=== PATIENT | male | born 1990 | race Caucasian/White ===

== ENCOUNTER 2016-06-06 01:11 | Inpatient (IN) | payer OTHER, MEDICAID ==
[~2016-06-06] VITALS: Ht 182.9 cm; Wt 97.3 kg
[2016-06-06] VITALS (7 sets, daily range): BP systolic 88–127; BP diastolic 53–77; PULSE 86–99; RESP 16–20; O2SAT 93–98
[~2016-06-06 01:11] MED LIST: BAC10 PO; DES50 PO; DSS250 PO; LEVE100014 PO; PRI20 PO; PRO20 PO
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
[2016-06-06] MEDS ORDERED: cefTRIAXone Inj 2,000 MG in Dextrose 5% Minibag Plus 50 ML IV ONE (01:45)
[2016-06-06 01:54] LABS: APPEARANCE,URINE CLOUDY (CLEAR,HAZY); COLOR,URINE DARK YELLOW (YELLOW); PH,URINE 8.5 (5.0-8.0)
[2016-06-06 01:55] LABS: OCCULT BLOOD,URINE SMALL (NEGATIVE)
[2016-06-06 02:43] LABS: BASOPHILS % (AUTO) 0.1 % (0-3); EOSINOPHILS % (AUTO) 0.6 % (0-5); MONOCYTES % (AUTO) 6.8 % (4-12); Mean Corpuscular Hemoglobin 27.4 pg (27.0-35.0); Mean Corpuscular Volume 81.9 fL (81-100); NEUTROPHILS % (AUTO) 87.5 % (40-74); Platelet Count 216 bil/L (150-400)
[2016-06-06 03:04] LABS: Magnesium 1.5 mg/dL (1.6-2.6)
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
[2016-06-06] MEDS ORDERED: 0.9% Sodium Chloride 1,000 ML IV SCH (03:58)
[2016-06-06] MEDS ORDERED: Alum-Mag Hydrox-Simeth 30 mL Suspension PO PRN (04:00)
[2016-06-06] MEDS ORDERED: Ondansetron 2 mg/mL 2 mL Inj IVPUSH PRN (04:00)
[2016-06-06] MEDS ORDERED: Polyethylene Glycol (PEG) 17 Gm Powder PO PRN (04:00)
[2016-06-06] MEDS: 0.9% Sodium Chloride 1,000 ML IV SCH ×3 (04:22→20:32)
[2016-06-06] MEDS ORDERED: Magnesium Sulf 2 Gm/50mL Water 2 GM in IV Premix 1 EACH IV ONE (06:00)
[2016-06-06] MEDS: Sodium Chloride LOK Flush 10 mL Syringe IVFLUSH SCH ×2 (08:29→17:01)
[2016-06-06] MEDS: Heparin 5,000 Unit/mL Inj SUBQ SCH ×2 (08:32→17:34)
[2016-06-06] MEDS ORDERED: BISA-67 PO (12:07)
[2016-06-06] MEDS ORDERED: DOCU250C2 PO (12:07)
[2016-06-06] MEDS ORDERED: LEVE100014 PO (12:07)
[2016-06-06] MEDS ORDERED: BISA10EN RC (12:07)
[2016-06-06] MEDS ORDERED: FLUO10TA PO (12:07)
[2016-06-06] MEDS ORDERED: OMEP20TA86 PO (12:07)
[2016-06-06] MEDS ORDERED: TRAZ-115 PO (12:07)
[2016-06-06] MEDS ORDERED: BACL20TA PO (12:07)
--- NOTE | 2016-06-06 13:55 | NUR ---
Admit Note Pt admitted to room 1010. Pt denies any pain or discomfort. VSS, SpO2 in the high 90's on RA. Plan of care reviewed with pt and pt's mother. Admit done with pt's mother at bedside, indwelling catheter changed. Pt A/O, calm and coop with care. Cont to monitor.
[2016-06-06] MEDS: cefTRIAXone Inj 2,000 MG in Dextrose 5% Minibag Plus 50 ML IV SCH (20:00)
[2016-06-06] MEDS: levETIRAcetam 500 mg Tablet PO SCH (20:32)
[2016-06-07] MEDS: Sodium Chloride LOK Flush 10 mL Syringe IVFLUSH SCH ×3 (00:30→16:30)
[2016-06-07 00:35] VITALS: BP 116/70; PULSE 93; RESP 16; O2SAT 92
[2016-06-07] MEDS: Heparin 5,000 Unit/mL Inj SUBQ SCH ×3 (00:53→19:09)
[2016-06-07 02:45] LABS: BASOPHILS % (AUTO) 0.3 % (0-3); EOSINOPHILS % (AUTO) 0.7 % (0-5); MONOCYTES % (AUTO) 8.2 % (4-12); Mean Corpuscular Hemoglobin 27.9 pg (27.0-35.0); Mean Corpuscular Volume 82.8 fL (81-100); NEUTROPHILS % (AUTO) 70.1 % (40-74); Platelet Count 184 bil/L (150-400)
--- NOTE | 2016-06-07 02:58 | NUR ---
fever/temp Pt running temp of 102.0 oral at 2100 vitals. Pt had rec'd tylenol 650mg for a headache at 1999. Notified MD. Ordered to monitor. Pt temp taken at 0030 and was 103.0 oral, Notified MD- ordered blood cultures x2. Tylenol 650mg given. Monitoring for changes, care ongoing
[2016-06-07 03:54] LABS: Magnesium 1.9 mg/dL (1.6-2.6)
[2016-06-07] MEDS: 0.9% Sodium Chloride 1,000 ML IV SCH ×4 (03:58→20:37)
[2016-06-07 06:15] VITALS: BP 124/83; PULSE 87; RESP 16; O2SAT 96
[2016-06-07] MEDS: Pantoprazole 40 mg ER24 Tablet PO SCH (06:27)
[2016-06-07 08:30] VITALS: BP 121/77; PULSE 82; RESP 16; O2SAT 98
[2016-06-07] MEDS: levETIRAcetam 500 mg Tablet PO SCH ×2 (10:01→20:38)
[2016-06-07 12:52] VITALS: BP 117/72; PULSE 80; RESP 16; O2SAT 96
--- NOTE | 2016-06-07 15:11 | NUR ---
Social Work Note: Screen Note Data & Assessment: EMR reviewed. Patient is a 25 year old male admitted on 06/06/16 for sepsis syndrome. Pt has [employer] and [facility] for insurance coverage and goes to [facility]. Pt lives at home with supportive family and has a nurse in the home three nights a week. SW met with patient and patient's mother at bedside and patient does not have Advance Directive/ DPOA and declined information. No discharge needs identified at this time. SW to continue to follow if any needs arise. Plan: Anticipated discharge home when medically ready. Patient has supportive family. No discharge needs identified at this time. SW to continue to follow if any needs arise. Darlyn Andrew, ANETTE, ACM
[2016-06-07 17:22] VITALS: BP 122/80; PULSE 73; RESP 16; O2SAT 98
--- NOTE | 2016-06-07 17:29 | PCM.PNMED ---
Subjective Date of Service Jun 07, 2016 Subjective Patient was seen and examined at bedside today. Patient denies any chest pain, shortness of breath, nausea, vomiting, diarrhea. Overnight events: None Exam Vital Signs Vital Sign - Last Date Time Temp Pulse Resp B/P Pulse Ox O2 Delivery O2 Flow Rate FiO2 06/07/16 12:52 37.0 80 16 117/72 96 Room Air Intake and Output 06/06/16 06/06/16 06/07/16 Cumulative From/Thru 15:00 23:00 07:00 06/06/16 01:40 - 06/07/16 06:53 Intake Total 1348 ml 2047 ml 2168 ml 6663 ml Output Total 750 ml 750 ml 3450 ml 5750 ml Balance 598 ml 1297 ml -1282 ml 913 ml Intake Oral 1560 ml 840 ml 2400 ml IV Total 1348 ml 487 ml 1328 ml 4263 ml Output Urine Total 750 ml 750 ml 3450 ml 5750 ml Exam Physical Exam: GEN: Patient was awake, alert, responding appropriately to questions HEENT: Pupils equal round and reactive to light, extraocular eye muscles intact , Neck soft supple, trachea midline, nomocephalic/atraumatic CV: +S1/S2, regular rate and rhythm, no murmurs auscultated Respiratory: CTAB, no wheezes, rales, rhonchi GI: +bowel sounds x4, soft, compressible, nontender to palpation EXT: no clubbing, cyanosis, edema Muscle skeletal: Patient is paraplegic Psych: mood and affect were appropriate IVs and Medications Medications Reviewed: Medications were reviewed in detail Lab and Diagnostics Result Diagram: 06/07/16 0226 06/07/16 0226 Assessment & Plan This is a 25-year-old male with history of spinal cord injury now paraplegic, and history of multiple cranial surgeries who presented to the ED with acute onset severe headache, temperature of 38.4, and progressive ptosis of 18.6. Patient was admitted for sepsis and placed on IV ceftriaxone 2000 mg daily. Sepsis secondary to UTI, present on admission, active -Patient meets sepsis criteria Temperature 38.4, pulse 93 -WBCs 18.6 with 87.5% PMNs, -Continue ceftriaxone 2000 mg every 24 hours -Blood cultures negative 24 hours -Patient has chronic Gould catheter changed weekly Hypomagnesemia, present on admission, (resolved) -Magnesium 1.5 on admission currently 1.9 status post 2 g repletion Traumatic spinal cord injury paraplegic (onset 2008) -Patient currently does not have a neurologist, patient has not seen a neurologist for 2 years. -No sensorimotor function below the level of L4 -History of intracranial shunt currently in place since March 2009 -History of prosthetic device in left frontal skull Seizures, Absence type, currently stable -Continue home medication Keppra thousand milligrams twice a day Depression and anxiety -Continue Medication fluoxetine -Takes trazodone at home Chronic constipation -Continue daily docusate GERD -Continue omeprazole Disposition: Patient is currently doing well leukocytosis has significantly improved patient will most likely need 1-2 more days of IV antibiotics and will be discharged home. CODE STATUS: Full code PCP: Jb Bond MD [facility] DVT PE prophylaxis: SubQ heparin Q8H Contact: Sravanthi "mother" Kendall "father" [phone] VTE Prophylaxis: Sub-Q Enoxaparin VTE Mechanical Devices: Intermittant Pneumatic CD Resuscitation Status: CPR: Attempt Resuscitation Alisa Gaming DO Jun 07, 2016 17:29
--- NOTE | 2016-06-07 19:51 | NUR ---
Activity Pt declined to get OOB today, but is paraplegic and Mom had w/c in her van. Q2 turns done and heels floated, which pt was agreeable to. Pt has suprapubic knight, which drained to gravity. Pt able to eat all meals w/o nausea and had no c/o pain during shift.
[2016-06-07] MEDS: cefTRIAXone Inj 2,000 MG in Dextrose 5% Minibag Plus 50 ML IV SCH (20:37)
[2016-06-07 21:22] VITALS: BP 121/82; PULSE 72; RESP 16; O2SAT 96
[2016-06-08] MEDS: Sodium Chloride LOK Flush 10 mL Syringe IVFLUSH SCH ×2 (00:26→10:03)
[2016-06-08] MEDS: Heparin 5,000 Unit/mL Inj SUBQ SCH ×2 (03:26→10:05)
[2016-06-08] MEDS: 0.9% Sodium Chloride 1,000 ML IV SCH ×2 (03:26→11:41)
[2016-06-08 03:31] VITALS: BP 114/75; PULSE 84; RESP 16; O2SAT 96
--- NOTE | 2016-06-08 04:51 | NUR ---
Activity Pt slept well, q2hr turns with heels floated. Pt ate well. VSS, afebrile. 2nd set of blood cultures pending. 0 c/o general pain or headache
[2016-06-08 05:40] LABS: Mean Corpuscular Hemoglobin 27.4 pg (27.0-35.0)
[2016-06-08] MEDS: Pantoprazole 40 mg ER24 Tablet PO SCH (06:28)
[2016-06-08 08:36] VITALS: BP 113/70; PULSE 77; RESP 16; O2SAT 96
[2016-06-08] MEDS: levETIRAcetam 500 mg Tablet PO SCH (10:03)
[2016-06-08] MEDS ORDERED: CIPR-231 PO (12:04)
--- NOTE | 2016-06-08 12:09 | PCM.DIMED ---
Discharge Instructions Date of Service Jun 08, 2016 Dates of Hospitalization Jun 06, 2016 at 07:51 Discharge Diagnosis Discharge Diagnosis Sepsis secondary to UTI Hypomagnesemia (resolved) Diet No restrictions Activity No restrictions (gradually return to normal daily activities) Patient Instructions Follow-up with PCP in: 1 week (please follow-up with your primary care provider if an appointment has not been made please call to schedule an appointment) Alisa Gaming DO Jun 08, 2016 12:05
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
--- NOTE | 2016-06-08 14:33 | NUR ---
Discharge To home via private vehicle with mother. Assist to transfer to own wheelchair with slider board. IV discontinued intact. All personal belongings sent with pt. Pt and mother express understanding of all discharge instructions, including meds and followup. Rx faxed to [facility].
== END 2016-06-08 14:24 | disposition home or self-care (01) | DRG 698 ==
LOC: SED 01:11 → OSC 07:51
PROVIDERS: ADMIT Hospitalist; ATTEND Hospitalist
DX: T83.510A Infection and inflammatory reaction due to cystostomy catheter, initial encounter (principal); A41.9 Sepsis, unspecified organism; N39.0 Urinary tract infection, site not specified; G82.20 Paraplegia, unspecified; E83.42 Hypomagnesemia; L89.629 Pressure ulcer of left heel, unspecified stage; G40.909 Epilepsy, unspecified, not intractable, without status epilepticus; F41.8 Other specified anxiety disorders; L89.619 Pressure ulcer of right heel, unspecified stage; K21.9 Gastro-esophageal reflux disease without esophagitis; S34.104S Unspecified injury to L4 level of lumbar spinal cord, sequela; V49.9XXS Car occupant (driver) (passenger) injured in unspecified traffic accident, sequela